=== PATIENT | female | born 1975 | race Caucasian/White ===

== ENCOUNTER 2017-05-11 00:53 | Emergency (ER) | payer OTHER ==
--- NOTE | 2017-05-11 02:24 | NUR ---
CALLED FOR TRIAGE X2; NO ANSWER
--- NOTE | 2017-05-11 02:42 | NUR ---
CALLED AGAIN; NOT IN LOBBY
== END 2017-05-11 02:43 | disposition left against medical advice (07) ==
LOC: ER 00:54
DX: Z53.21 Procedure and treatment not carried out due to patient leaving prior to being seen by health care provider (principal)